=== PATIENT | female | born 2000 | race Caucasian/White ===

== ENCOUNTER 2020-03-24 11:22 | Outpatient (REF) | payer OTHER, SELFPAY ==
--- NOTE | 2020-03-24 11:00 | PAPFT_PTH ---
PATIENT: Jessica Anglin LOC: [facility] U#:[id number] AGE/SX: ROOM: RE03/24/[address]: Deanne Toscano : 2000 BED: DIS: 03/24/2020 SPEC #: [id number] RECD: 03/24/20 13:07 STATUS: AYLIN REDarnell #: [id number] BILL: 03/24/20 11:[address]: Deanne Toscano DEPT: [facility] Cytology RECD BY: Dian Ro ENTERED: 03/24/20 13:08 SP TYPE: PAPFT OTHR DR: Delfino Guevara Tissues: 1 - CX/ENDOCX FOR PAP SMEARS Procedures: PAP THIN PREP/[facility] Screening Comments: [id number] (CHLAMYDIA/GC)
[2020-03-25 15:46] LABS: Chlamydia Result Negative (Negative); GC Result Negative (Negative)
== END 2020-03-24 11:42 ==
LOC: NCHCN 11:22
PROVIDERS: PCP Family Medicine; Visit Provider Registered Nurse
DX: Z11.3 Encounter for screening for infections with a predominantly sexual mode of transmission (principal); Z12.4 Encounter for screening for malignant neoplasm of cervix; Z00.00 Encounter for general adult medical examination without abnormal findings
CPT/HCPCS: 87491; 87591; 88142

== ENCOUNTER 2021-01-10 21:52 | Outpatient (REF) | payer OTHER, SELFPAY ==
[2021-01-12 12:49] LABS: COVID-19 RT-PCR UVMMC Result Negative (Negative)
== END 2021-01-10 21:53 | disposition home or self-care (01) ==
LOC: NCHCN 21:52
PROVIDERS: PCP Family Medicine; Visit Provider Internal Medicine
DX: Z20.822 Contact with and (suspected) exposure to COVID-19 (principal); J06.9 Acute upper respiratory infection, unspecified
CPT/HCPCS: U0003

== ENCOUNTER 2022-10-26 08:49 | Outpatient (REF) | payer OTHER, SELFPAY ==
[2022-10-27 13:26] LABS: Chlamydia Result Negative (Negative); GC Result Negative (Negative)
== END 2022-10-26 08:50 | disposition home or self-care (01) ==
LOC: NCHCN 08:49
PROVIDERS: PCP Family Medicine; Visit Provider Registered Nurse
DX: N91.2 Amenorrhea, unspecified (principal); E66.8 Other obesity; Z11.3 Encounter for screening for infections with a predominantly sexual mode of transmission
CPT/HCPCS: 87491; 87591; 84703

== ENCOUNTER → 2023-03-23 02:15 | Outpatient (CLI) | payer MEDICAID, SELFPAY ==
--- NOTE | 2023-03-23 | DI.US_ITS ---
Exam(s) US OB LISSY WEIGHT EXAM: US OB LISSY WEIGHT CLINICAL HISTORY: OBESITY THIRD TRIMESTER O99.213. TECHNIQUE: Transabdominal obstetrical ultrasound performed. COMPARISON: No exams were available for comparison FINDINGS: Number of fetuses: 1 position: CEPHALIC Placental location: ANTERIOR No evidence of previa. BIOMETRIC DATA: BPD: 8.99cm, 36weeks 3days HC: 33.63cm, 38weeks 4days AC: 33.06cm, 37weeks FL: 7.01cm, 36weeks EFW: 3,041.28g, 6lb 11.73oz, 89.3% Composite Age: 37weeks XAVIER: 04[birth year]13[birth year]23 Heart Rate: 145bpm Amniotic fluid index: 18.24cm. Visually, amount of fluid is within normal limits. IMPRESSION: 1. Single live intrauterine gestation as above. 2. Estimated weight is 3041gms. This is the 89th percentile. 3. Amniotic fluid index is 18.2 cm. Visually within normal limits. DATA REPOSITORY:
== END ==
PROVIDERS: PCP Family Medicine; Visit Provider Advanced Practice Midwife
DX: Z3A.34 34 weeks gestation of pregnancy (principal); Z34.93 Encounter for supervision of normal pregnancy, unspecified, third trimester
CPT/HCPCS: 76816